=== PATIENT | male | born 1995 | race Caucasian/White ===

== ENCOUNTER → 2016-09-04 | Outpatient (CLI) | payer OTHER ==
[~2016-09-04] MED LIST: ACETAMINOPHEN PO; ANTIVERT PO; ATORVASTATIN CA10 MG PO; AUGMENTIN PO; AZO STANDARD97.5 MG PO; BENADRYL PO; CELEXA10 MG PO; CLARITIN10 M3 DOB; CLARITIN10 MG PO; FENOFIBRATE160 MG; HUMALIN N SQ; HUMALOG100 U/ML SUBQ; HYDROXYZINE HCL10 MG PO; IBUPROFEN600 MG PO; LIPITOR PO; LIPITOR80 MG PO; LISINOPRIL2.5 MG PO; LORTAB 5/500 TA1 TA1 PO; LYRICA75 MG PO; MACROBID100 M1; OMEPRAZOLE20 M2 PO; PREVACID30 MG/BLIS PO; PRILOSEC PO; TRICOR PO; TRILEPTAL300 MG PO; VOLTAREN75 MG PO; ZOFRAN ODT4 MG PO; ZYRTEC10 M2 PO; [UNRECOGNIZED DRUG - SUPPLY]
--- NOTE | ~2016-09-04 | US5 ---
[facility] A Service of [facility] RADIOLOGY TEXT RESULTS PATIENT: NIKKI WU JR LOCATION: [facility] : [birth year] UNIT #: [id number] AGE: [address]: Betsy Liz MD SEX: M ORDER DR: [id number] [facility]. [place], [place] [address] [id number] MR#: [id number] Acc #: [id number] NAME: NIKKI WU JR : 1995 SEX: M STUDY DATE/TIME: 09/04/2016 8:23 UNIT: CGUS ROOM: STUDY DESCRIPTION: US Abdominal Complete Attending Physician: Betsy Liz M.D. Referring Physician: Betsy Liz M.D. Ordering Physician: Betsy Liz M.D. Primary Care Physician: Betsy Liz M.D. MEDICAL IMAGING REPORT This report is preliminary unless electronic signature is present EXAM Abdominal ultrasound INDICATIONS Elevated liver enzyme levels. Right upper quadrant abdominal pain for the past 10 months. PROCEDURE Ellis-scale and Doppler imaging of the abdomen COMPARISON CT from 10/31/2015 FINDING The abdominal aorta and pancreas are obscured by bowel gas and not well seen. Liver shows diffusely increased echotexture and is difficult to evaluate on this study. It measures approximately 20.9 cm. Unremarkable gallbladder. Common duct measures 5 mm. The right kidney measures 12.7 cm. Left kidney measures 13.7 cm. Spleen measures 12.4 cm. IMPRESSION 1. Hepatomegaly with steatosis. 2. Common duct minimally prominent for the patient's age. This may be normal for the patient. Correlate with laboratory values. 3. Pancreas and abdominal aorta, as well as the inferior vena cava are obscured on the study and not well seen. Dictated by... Sancho Wong M.D. THIS IS AN ELECTRONICALLY VERIFIED REPORT [facility] A Service of [facility] RADIOLOGY TEXT RESULTS PATIENT: NIKKI WU JR LOCATION: [facility] : [birth year] UNIT #: [id number] AGE: [address]: Betsy Liz MD SEX: M ORDER DR: Sancho Wong M.D. at 09/07/2016 9:56 PM DEMETRIO/john TD: 09/04/2016 10:28 JOB #: [id number] MEDICAL IMAGING REPORT Page 1 of 1 COPY
== END | disposition home or self-care (01) ==
LOC: SGUS 08-21 08:30 → CGUS 07:55 → SGUS 09:00
DX: R94.5 Abnormal results of liver function studies (principal); K76.0 Fatty (change of) liver, not elsewhere classified; R16.0 Hepatomegaly, not elsewhere classified
CPT/HCPCS: 76700